=== PATIENT | male | born 1935 | race African-American/Black ===

== ENCOUNTER → 2017-08-26 | Outpatient (CLI) | payer MEDICARE, OTHER | END | disposition home or self-care (01) | LOC: KCIC US 14:10 | DX: M79.605 Pain in left leg (principal) | CPT/HCPCS: 93971 ==

== ENCOUNTER → 2017-10-01 | Day surgery (SDC) | payer MEDICARE, OTHER ==
[~2017-10-01] MED LIST: IV RINGERS,LACTATED 1000ML 1,000 ML IV; LIDOCAINE 1% PF 2 ML VIAL. ID; LIDOCAINE 2% PF Vial for OR 5 ML VIAL.; MIDAZOLAM HCL/PF 2 MG/2 ML VIAL. IV; PROPOFOL 20 ML IV; fentaNYL PF VIAL 100 MCG/2 ML VIAL IV
[2017-10-01] MEDS: IV RINGERS,LACTATED 1000ML 1,000 ML IV (07:05)
== END | disposition home or self-care (01) ==
LOC: ENDOS 11:20
DX: K29.50 Unspecified chronic gastritis without bleeding (principal); I10 Essential (primary) hypertension; I25.10 Atherosclerotic heart disease of native coronary artery without angina pectoris; I48.91 Unspecified atrial fibrillation; Z86.711 Personal history of pulmonary embolism; Z95.5 Presence of coronary angioplasty implant and graft; Z79.01 Long term (current) use of anticoagulants; Z79.82 Long term (current) use of aspirin; E78.00 Pure hypercholesterolemia, unspecified; Z85.46 Personal history of malignant neoplasm of prostate; D64.9 Anemia, unspecified; Z79.899 Other long term (current) drug therapy; Z90.49 Acquired absence of other specified parts of digestive tract; Z98.890 Other specified postprocedural states; Z98.49 Cataract extraction status, unspecified eye; Z86.718 Personal history of other venous thrombosis and embolism; M19.90 Unspecified osteoarthritis, unspecified site; Z82.49 Family history of ischemic heart disease and other diseases of the circulatory system; Z90.79 Acquired absence of other genital organ(s)
CPT/HCPCS: 43235; J2704

== ENCOUNTER → 2017-11-09 | Outpatient (CLI) | payer MEDICARE | END | disposition home or self-care (01) | LOC: US 09:14 | DX: I70.8 Atherosclerosis of other arteries (principal); I10 Essential (primary) hypertension; E78.5 Hyperlipidemia, unspecified; E78.00 Pure hypercholesterolemia, unspecified; E21.3 Hyperparathyroidism, unspecified | CPT/HCPCS: 93880 ==

== ENCOUNTER → 2018-01-19 | Outpatient (CLI) | payer MEDICARE ==
[2017-10-01 13:25] VITALS: BP 141/61
[~2018-01-19] MED LIST changes: +ASPI-482 PO; +ASPI325T8 PO; +CETI10TA16 PO; +CLOP75TA PO; +ENOX40DI SQ; -IV RINGERS,LACTATED 1000ML 1,000 ML IV; -LIDOCAINE 1% PF 2 ML VIAL. ID; -LIDOCAINE 2% PF Vial for OR 5 ML VIAL.; -MIDAZOLAM HCL/PF 2 MG/2 ML VIAL. IV; +PANT20TA2 PO; +PRAV40TA2 PO; -PROPOFOL 20 ML IV; +SIME80TA PO; +SOTA80TA48 PO; +WARF-31 PO; +WHEA1POW5 PO; -fentaNYL PF VIAL 100 MCG/2 ML VIAL IV
--- NOTE | 2018-01-19 16:39 | RAD ---
Radionuclide bone scan, 01/19/2018: HISTORY: Prostate cancer Multidetector CT imaging was performed following IV injection of 26 mCi of technetium 99m MDP. No previous bone scan is available at this time for comparison purposes. The following findings are delineated: 1. Mildly increased activity at both knees, wrists, hands, shoulders and sternoclavicular articulations are compatible with arthritis. 2. Faintly increased activity at scattered levels in the spine is likely due to arthritis. 3. Activity of the radionuclide about the skeleton and major joints is otherwise unremarkable. 4. Normal activity is present in both kidneys and the bladder. IMPRESSION: 1. Scattered arthritic changes as described above. 2. No convincing evidence of osseous metastatic disease. Electronically signed by: Reginaldo Ruiz MD (01/19/2018 4:35 PM) [facility]
== END | disposition home or self-care (01) ==
LOC: NM 14:14
DX: M13.841 Other specified arthritis, right hand (principal); M13.842 Other specified arthritis, left hand; I10 Essential (primary) hypertension; E78.5 Hyperlipidemia, unspecified; E78.00 Pure hypercholesterolemia, unspecified; Z80.59 Family history of malignant neoplasm of other urinary tract organ; Z82.0 Family history of epilepsy and other diseases of the nervous system; Z80.8 Family history of malignant neoplasm of other organs or systems; Z85.89 Personal history of malignant neoplasm of other organs and systems
CPT/HCPCS: 78306; 96374; A9503

== ENCOUNTER 2018-03-24 17:38 | Emergency (ER) | payer MEDICARE ==
[~2018-03-24] VITALS: Ht 175.3 cm; Wt 72.6 kg
[2018-03-24 18:18] LABS: BASO % 1 % (0-3); EOS # 0.2 x10^3/uL (0.0-0.7); EOS % 5 % (0-3); HEMATOCRIT 37.8 % (39.0-53.0); LYMPH # 1.1 x10^3/uL (1.0-4.8); LYMPH % 28 % (24-48); MEAN CORPUSCULAR HEMOGLOBIN 31 pg (25-35); MEAN CORPUSCULAR HGB CONC 34 g/dL (31-37); MEAN CORPUSCULAR VOLUME 89 fL (79-100); MONO # 0.5 x10^3/uL (0.0-1.1); MONO % 13 % (0-9); NEUT % 53 % (31-73); PLATELET COUNT 181 x10^3/uL (140-400); RED BLOOD COUNT 4.25 x10^6/uL (4.30-5.70); WHITE BLOOD COUNT 3.9 x10^3/uL (4.0-11.0)
[2018-03-24] MEDS ORDERED: ONDANSETRON ODT 4 MG TAB.RAPDIS. PO ONE (18:30)
--- NOTE | 2018-03-24 19:16 | EKG ---
[facility] [address] [place] [address] Test Date: 2018-03-24 Test Time: 17:50:58 Pat Name: FLORENCE AMIN Department: Room: Gender: M Casework Supervisor: : 1935 Requested By: MARIA R MEZA Order Number: [id number] Reading MD: Tanner Nunez MD Measurements Intervals [place] Rate: 63 P: 0 ID: 188 QRS: 39 QRSD: 94 T: 31 QT: 392 QTc: 404 Interpretive Statements SINUS RHYTHM RBBB Electronically Signed On 03-25-2018 11:13:53 [employer] by Tanner Nunez MD
[2018-03-24 19:41] LABS: CALCIUM 9.8 mg/dL (8.5-10.1); CREATININE 1.2 mg/dL (0.7-1.3); GFR 70.1; POTASSIUM 4.4 mmol/L (3.5-5.1)
[2018-03-24 19:43] LABS: ALBUMIN 3.5 g/dL (3.4-5.0); ALBUMIN/GLOBULIN RATIO 0.9 (1.0-1.7); TOTAL BILIRUBIN 0.4 mg/dL (0.2-1.0); TOTAL PROTEIN 7.2 g/dL (6.4-8.2)
--- NOTE | 2018-03-24 20:50 | PHYS DOC ---
Past Medical History Past Medical History: A-Fib, Cancer, Diabetes-Type II, Gallstones, High Cholesterol, Hypertension, Other Past Surgical History: Cancer Surgery, Cholecystectomy, Other Additional Past Surgical Histo: Back surgery, prostatectomy, STENT Alcohol Use: None Drug Use: None Adult General Chief Complaint Chief Complaint: CHEST PAIN HPI HPI Patient is a 82 year old history of GI bleed, CAD, hypertension and afib who presents with blood-tinged sputum earlier this afternoon. Patient takes daily aspirin but is not on additional anticoagulation therapy. Patient denies epigastric pain. No nausea or vomiting. No shortness of breath, chest pain. Does report occasional black stool. No leg pain or swelling. No dizziness or lightheadedness. No other acute symptoms or complaints. [] Review of Systems Review of Systems Review symptoms as per history of present illness. All other review symptoms are negative. All other systems were reviewed and found to be within normal limits, except as documented in this note. Current Medications Current Medications Current Medications Medications (Trade) Dose Ordered Sig/Marisol Start Time Stop Time Status Last Admin Dose Admin Famotidine (Pepcid Vial) 20 mg 1X ONCE 03/24/18 21:00 03/24/18 21:01 DC 03/24/18 21:07 20 MG Ondansetron HCl (Zofran Odt) 8 mg 1X ONCE 03/24/18 18:30 03/24/18 18:31 DC Pantoprazole Sodium (PROTONIX VIAL for IV PUSH) 80 mg 1X ONCE 03/24/18 21:00 03/24/18 21:01 DC 03/24/18 21:08 40 MG Allergies Allergies Allergies Coded Allergies Type Severity Reaction Last Updated Verified No Known Drug Allergies 10/01/17 No Physical Exam Physical Exam Constitutional: Well developed, well nourished, no acute distress, non-toxic appearance. [] HENT: Normocephalic, atraumatic, bilateral external ears normal, oropharynx moist, no oral exudates, nose normal. [] Eyes: PERRLA, EOMI, conjunctiva normal, no discharge. [] Neck: Normal range of motion, no tenderness, supple, no stridor. [] Cardiovascular:Heart rate regular rhythm, no murmur [] Lungs & Thorax: Bilateral breath sounds clear to auscultation [] Abdomen: Bowel sounds normal, soft, epigastric pain, no tenderness. [] Skin: Warm, dry. [] Back: No tenderness. [] Extremities: No tenderness, no cyanosis, no clubbing, ROM intact, no edema. [] Neurologic: Alert and oriented X 3, normal motor function, normal sensory function, no focal deficits noted. [] Psychologic: Affect normal, judgement normal, mood normal. [] Current Patient Data Vital Signs Vital Signs Date Time Temp Pulse Resp B/P (MAP) Pulse Ox O2 Delivery O2 Flow Rate FiO2 03/24/18 22:45 63 12 144/67 (92) 98 Room Air 03/24/18 17:40 97.8 97.8 Lab Values Laboratory Tests Test 03/24/18 18:00 03/24/18 18:55 03/24/18 19:03 White Blood Count 3.9 x10^3/uL (4.0-11.0) L Red Blood Count 4.25 x10^6/uL (4.30-5.70) L Hemoglobin 13.0 g/dL (13.0-17.5) Hematocrit 37.8 % (39.0-53.0) L Mean Corpuscular Volume 89 fL (79-100) Mean Corpuscular Hemoglobin 31 pg (25-35) Mean Corpuscular Hemoglobin Concent 34 g/dL (31-37) Red Cell Distribution Width 15.0 % (11.5-14.5) H Platelet Count 181 x10^3/uL (140-400) Neutrophils (%) (Auto) 53 % (31-73) Lymphocytes (%) (Auto) 28 % (24-48) Monocytes (%) (Auto) 13 % (0-9) H Eosinophils (%) (Auto) 5 % (0-3) H Basophils (%) (Auto) 1 % (0-3) Neutrophils # (Auto) 2.0 x10^3uL (1.8-7.7) Lymphocytes # (Auto) 1.1 x10^3/uL (1.0-4.8) Monocytes # (Auto) 0.5 x10^3/uL (0.0-1.1) Eosinophils # (Auto) 0.2 x10^3/uL (0.0-0.7) Basophils # (Auto) 0.0 x10^3/uL (0.0-0.2) Sodium Level 141 mmol/L (136-145) Potassium Level 4.4 mmol/L (3.5-5.1) Chloride Level 104 mmol/L (98-107) Carbon Dioxide Level 27 mmol/L (21-32) Anion Gap 10 (6-14) Blood Urea Nitrogen 22 mg/dL (8-26) Creatinine 1.2 mg/dL (0.7-1.3) Estimated GFR (Cockcroft-Gault) 70.1 BUN/Creatinine Ratio 18 (6-20) Glucose Level 107 mg/dL (70-99) H Calcium Level 9.8 mg/dL (8.5-10.1) Total Bilirubin 0.4 mg/dL (0.2-1.0) Aspartate Amino Transferase (AST) 21 U/L (15-37) Alanine Aminotransferase (ALT) 19 U/L (16-63) Alkaline Phosphatase 78 U/L (46-116) Troponin I Quantitative < 0.017 ng/mL (0.000-0.055) Total Protein 7.2 g/dL (6.4-8.2) Albumin 3.5 g/dL (3.4-5.0) Albumin/Globulin Ratio 0.9 (1.0-1.7) L Stool Occult Blood Negative (NEG) Laboratory Tests 03/24/18 18:00 Laboratory Tests 03/24/18 18:55 EKG EKG [EKG: reviewed] Radiology/Procedures Radiology/Procedures XR Chest: No acute cardiopulmonary disease on preliminary ED review[] Course & Med Decision Making Course & Med Decision Making Pertinent Labs and Imaging studies reviewed. (See chart for details) [Abdomen soft nontender, reports only mild abdominal pain. No hemoptysis or hematemesis while in the emergency department. Guaiac stools negative. Patient denies chest pain shortness of breath. Street of GI bleed, Protonix given. Patient instructed to resume Protonix follow-up with PCP for further evaluation. Return precautions reviewed. Patient verbalizes understanding agreement discharge instructions prior to departure.] Dragon Disclaimer Dragon Disclaimer This electronic medical record was generated, in whole or in part, using a voice recognition dictation system. Departure Departure Impression: Primary Impression: GI bleeding Disposition: HOME, SELF-CARE Condition: GOOD Referrals: ZACHARY RILEY Jr, MD (PCP) MARIA R MEZA DO Mar 24, 2018 20:50
[2018-03-24] MEDS ORDERED: FAMOTIDINE 20 MG/2 ML VIAL IVP ONE (21:00)
[2018-03-24] MEDS ORDERED: PANTOPRAZOLE IV PUSH 40 MG VIAL. IVP ONE (21:00)
[2018-03-24 21:01] LABS: FECAL OB PT NEGATIVE (NEG)
[2018-03-24 22:45] VITALS: BP 144/67
--- NOTE | 2018-03-24 22:54 | RAD ---
Single view chest dated 03/24/2018. Comparison made to 11/28/2015. Clinical indication: Chest pain. FINDINGS: single upright portable exam performed. Heart and mediastinal contours are stable. Lungs are clear without focal consolidation. Vascular interstitium within normal limits. No pleural effusion or pneumothorax. IMPRESSION: No acute radiographic abnormality. Stable findings compared to 11/28/2015. Electronically signed by: Ortega Lynn MD (03/24/2018 10:51 PM) [facility]
== END 2018-03-24 22:42 | disposition home or self-care (01) ==
LOC: ER 17:38
DX: K92.2 Gastrointestinal hemorrhage, unspecified (principal); I48.91 Unspecified atrial fibrillation; E78.00 Pure hypercholesterolemia, unspecified; I10 Essential (primary) hypertension; Z90.49 Acquired absence of other specified parts of digestive tract; Z98.890 Other specified postprocedural states
CPT/HCPCS: 36415; 71045; 80053; 82274; 84484; 85025; 93005; 96374; 96375; 99285; C9113; J3490

== ENCOUNTER → 2018-05-27 | Outpatient (CLI) | payer MEDICARE ==
--- NOTE | 2018-05-31 15:12 | KCIC ---
Bone Densitometry History: Hormone treatments, history prostate cancer. Findings: Bone Densitometry was performed with dual photon absorption of the lumbar spine and left femur. Lumbar Spine: Bone density is 1.011 g/cm2 for L1-L4. T-score is -0.7. Z-score is -0.3. Left total femur: Bone density is 0.885 g/cm2. T-score is -1.0. Z-score is -0.2. IMPRESSION: Low normal bone mineral density of the lumbar spine. Borderline osteopenia of the left femur. World Health Organization definition of osteoporosis and osteopenia for women: normal equals T score at or above -1.0 standard deviations; osteopenia equals T score between -1.0 and -2.5 standard deviations; osteoporosis equals T score at or below -2.5 standard deviations. Electronically signed by: Eusebio Luu MD (05/27/2018 5:34 PM) [id number]
== END | disposition home or self-care (01) ==
LOC: KCIC DEXA 12:57
PROVIDERS: ATTEND Internal Medicine
DX: M85.852 Other specified disorders of bone density and structure, left thigh (principal); Z85.46 Personal history of malignant neoplasm of prostate
CPT/HCPCS: 77080

== ENCOUNTER → 2018-12-14 | Outpatient (CLI) | payer MEDICARE ==
[2018-12-14 19:14] LABS: TESTOSTERONE TOTAL 420 ng/dL (264-916)
== END | disposition home or self-care (01) ==
LOC: LAB 09:27
PROVIDERS: ATTEND Internal Medicine
DX: C61 Malignant neoplasm of prostate (principal)
CPT/HCPCS: 36415; 84153; 84403; G0103

== ENCOUNTER → 2020-05-22 | Outpatient (CLI) | payer MEDICARE ==
--- NOTE | 2020-05-22 15:54 | CARD ---
MR#: [id number] Date of Study: 05/22/2020 Ordering Physician: CORAZON NELSON, Referring Physician: CORAZON NELSON, Tech: Dianne Casiano [facility] APPROVED REPORT EXAM: Two-dimensional and M-mode echocardiogram with Doppler and color Doppler. Other Information Quality : Technically LimitedHR: 66bpm Rhythm : NSR INDICATION Dyspnea RISK FACTORS Hypertension 2D DIMENSIONS Left Atrium(2D)3.7 (1.6-4.0cm)IVSd1.2 (0.7-1.1cm) Aortic Root(2D)3.5 (2.0-3.7cm)LVDd4.0 (3.9-5.9cm) LVOT Diameter2.0 (1.8-2.4cm)PWd0.9 (0.7-1.1cm) LVDs2.4 (2.5-4.0cm)FS (%) 40.1 % SV51.0 mlLVEF(%)71.3 (>50%) Aortic Valve AoV Peak Diego.118.3cm/sAoV VTI28.4cm AO Peak GR.5.6mmHgLVOT Peak Diego.101.3cm/s AO Mean GR.3mmHgAVA (VMAX)2.78cm2 Mitral Valve MV E Bksivrte72.6cm/sMV DECEL [id number] MV A Muozjvxe68.0cm/sE/A Ratio1.5 Pulmonary Valve PV Peak Erjcyxxm12.3cm/s Tricuspid Valve TR P. Husgmupe996cz/sTR Peak Gr.38mmHg Pulmonary Vein S1 Aefsjvzc45.9cm/sD2 Givkskqx79.1cm/s PVa [id number] LEFT VENTRICLE The left ventricle is normal size. There is normal left ventricular wall thickness. The left ventricu lar systolic function is normal and the ejection fraction is within normal range. Estimated ejection fraction 60-65%. There is normal LV segmental wall motion. Transmitral Doppler flow pattern is Grade I-abnormal relaxation pattern. RIGHT VENTRICLE The right ventricle is normal size. There is normal right ventricular wall thickness. The right ventr icular systolic function is normal. ATRIA The left atrium is moderately dilated. The right atrium is moderately dilated. The interatrial septum is intact with no evidence for an atrial septal defect or patent foramen ovale as noted on 2-D or Do ppler imaging. AORTIC VALVE The aortic valve appears minimally sclerotic and is normal in structure and function. Doppler and Col or Flow revealed no significant aortic regurgitation. There is no significant aortic valvular stenosi s. MITRAL VALVE The mitral valve is normal in structure and function. There is no evidence of mitral valve prolapse. There is no mitral valve stenosis. Doppler and Color-flow revealed mild mitral regurgitation. TRICUSPID VALVE The tricuspid valve is normal in structure and function. Doppler and Color Flow revealed mild tricusp id regurgitation. Estimated PAP 42-45 mmHg. There is no tricuspid valve stenosis. PULMONIC VALVE The pulmonary valve is normal in structure and function. Doppler and Color Flow revealed moderate pul arminda valvular regurgitation. There is no pulmonic valvular stenosis. GREAT VESSELS The aortic root is normal in size. The ascending aorta is normal in size. The IVC is normal in size a nd collapses >50% with inspiration. PERICARDIAL EFFUSION There is no evidence of significant pericardial effusion. Critical Notification Critical Value: No <Conclusion> The left ventricular systolic function is normal and the ejection fraction is within normal range. Es timated ejection fraction 60-65%. There is normal LV segmental wall motion. Doppler and Color Flow revealed moderate pulmonic valvular regurgitation. Signed by : Tanner Nunez, Electronically Approved : 05/22/2020 15:54:37
== END ==
LOC: ECHO 13:40
PROVIDERS: ATTEND Internal Medicine Cardiovascular Disease
DX: I08.8 Other rheumatic multiple valve diseases (principal)
CPT/HCPCS: 93306

== ENCOUNTER → 2020-08-28 | Outpatient (CLI) | payer MEDICARE ==
[~2020-08-28] MED LIST changes: +CONTRAST GIVEN. MC PRN; +IOHEXOL 240 MG/ML 50ML VIAL. PO ONE; +IOHEXOL 300 MG/ML 100ML VIAL. IV ONE
[2020-08-28 09:52] LABS: CREATININE 1.1 mg/dL (0.7-1.3)
--- NOTE | 2020-08-28 11:32 | RAD ---
EXAM: Abdomen and pelvis CT with intravenous contrast. HISTORY: Pain. TECHNIQUE: Computed tomographic images of the abdomen and pelvis were obtained following the administ ration of intravenous contrast. Multiplanar reformatting was performed. *One or more of the following individualized dose reduction techniques were utilized for this examina tion: 1. Automated exposure control. 2. Adjustment of the mA and/or kV according to patient size. 3. Use of iterative reconstruction technique. COMPARISON: PET/CT dated 12/13/2015. FINDINGS: Evaluation of the lower thorax demonstrates posterior dependent and basilar atelectasis. Th ere is cardiomegaly. There is calcified atherosclerotic plaque involving the coronary arteries. There is calcification of the aortic valve. There are several hypodense lesions within the liver, the attenuation of which favors cysts. The larg est of these is seen within the inferior right hepatic lobe measuring 3.0 cm. The gallbladder is abse nt. The pancreas, spleen, stomach and adrenal glands are unremarkable. There are small and tiny simple appearing left renal cysts. There is no hydronephrosis or suspicious solid renal lesion. The urinary bladder is unremarkable. There are surgical clips throughout the pelv is. There is no appendicitis. There is no bowel obstruction. There is moderate colonic stool. There is si gmoid diverticulosis. There is no diverticulitis. There is calcified atherosclerotic plaque involving the aorta and aortic branch vessels. There is no lymphadenopathy. There is a small fat-containing ri ght inguinal hernia. There is no suspicious osseous lesion. IMPRESSION: 1. No convincing acute abdominal or pelvic finding. 2. Multiple simple appearing hepatic cysts and left renal cyst. Follow-up is not routinely performed for simple cysts. 3. Sigmoid diverticulosis. Electronically signed by: Connie Larson MD (08/28/2020 11:30 AM) [id number]
== END ==
LOC: CT 09:22
PROVIDERS: ATTEND Internal Medicine Gastroenterology
DX: K40.90 Unilateral inguinal hernia, without obstruction or gangrene, not specified as recurrent (principal); N28.1 Cyst of kidney, acquired; I70.0 Atherosclerosis of aorta; I51.7 Cardiomegaly
CPT/HCPCS: 36415; 74177; 82565; Q9966; Q9967

== ENCOUNTER → 2020-11-13 | Outpatient (CLI) | payer MEDICARE ==
[~2020-11-13] MED LIST changes: -CONTRAST GIVEN. MC PRN; -IOHEXOL 240 MG/ML 50ML VIAL. PO ONE; -IOHEXOL 300 MG/ML 100ML VIAL. IV ONE
--- NOTE | 2020-11-13 10:14 | RAD ---
MR#: [id number] Date of Study: 11/13/2020 Ordering Physician: CORAZON NELSON, Referring Physician: CORAZON NELSON, Tech: Yoni De Santiago MBA, RDMS, RVT, RDCS, RTR APPROVED REPORT Bilateral Lower Extremity Venous Study for DVT Patient Location: OUT-PATIENT Indications Lower Extremity Edema: Bilateral Vein Imaging (Right) CFV (R): Compressible SFJ (R): Compressible FEM (R): Compressible POP (R): Compressible DFV (R): Compressible PTV (R): Spontaneous GSV (R): Spontaneous Peroneals (R): Spontaneous Vein Imaging (Left) CFV (L): Compressible SFJ (L): Compressible FEM (L): Compressible POP (L): Compressible DFV (L): Compressible PTV (L): Spontaneous GSV (L): Spontaneous Peroneals (L): Spontaneous Doppler Evaluation (Right) CFV (R): Spontaneous POP (R):Spontaneous Doppler Evaluation (Left) CFV (L):Spontaneous POP (L):Spontaneous Findings The bilateral lower extremity deep veins were evaluated for thrombus with color Doppler, spectral and grayscale images. On the right the grayscale images of the common femoral, superficial femoral and popliteal veins do n ot demonstrate any evidence of thrombus and these veins appear to be compressible. The below-knee vei ns were not well visualized but grossly appear to be compressible. Spectral imaging and color Doppler do not reveal any evidence of obstruction to flow with normal respirophasic variation above the knee . Below the knee there is spontaneous flow noted. On the left, the grayscale images of the common femoral, superficial femoral and popliteal veins do n ot demonstrate any evidence of thrombus and these veins appear to be compressible. The below-knee vei ns again were not well visualized but grossly appear to be compressible. Spectral imaging and color D oppler do not reveal any evidence of obstruction to flow with normal respirophasic variation above th e knee. The below-knee veins demonstrate spontaneous flow. Critical Notification Critical Value: No <Conclusion> 1. Negative for DVT in the BLE. Signed by : Tanner Nunez, Electronically Approved : 11/13/2020 10:13:40
== END ==
LOC: US 06:32
PROVIDERS: ATTEND Internal Medicine Cardiovascular Disease
DX: R60.0 Localized edema (principal)
CPT/HCPCS: 93970

== ENCOUNTER 2021-06-26 07:26 | Emergency (ER) | payer MEDICARE ==
[~2021-06-26] VITALS: Ht 172.7 cm; Wt 70.9 kg
--- NOTE | 2021-06-26 07:30 | PHYS DOC ---
Past Medical History Past Medical History: A-Fib, Cancer, Diabetes-Type II, Gallstones, High C holesterol, Hypertension, Other Past Surgical History: Cancer Surgery, Cholecystectomy, Other Additional Past Surgical Histo: Back surgery, prostatectomy, STENT Smoking Status: Never Smoker Alcohol Use: None Drug Use: None General Adult HPI: HPI: Patient is a 86 year old male who presents with approximately 1 week history of intermittent dizziness. He describes lightheadedness. Denies symptoms of vertigo. He has no current symptoms at present. He also reports mild intermittent left sided headache pain, which is also currently resolved. No thunderclap headache reported. He denies fall or head injury. He denies numbness, tingling, motor weakness. He denies syncope or near syncope. He denies chest pain, palpitations or dyspnea. He denies abdominal pain, nausea, vomiting. He reports no specific symptom changes today. He took his blood pressure this morning at home, and the blood pressure readings were in the 150s and 160s systolic, which concerned him. He normally does not reportedly have hypertension, reportedly takes no antihypertensive medications, though hypertension is documented in his past medical history. He reports that he has significant difficulty with sleeping and problems with insomnia. He intermittently takes Benadryl, though not regularly. He does report good relief insomnia with Benadryl use. He reports that he has been up most of the night worrying about the symptoms. He has not contacted his PCP for evaluation of these symptoms. Review of Systems: Review of Systems: Constitutional: Denies fever or chills. [] Eyes: Denies change in visual acuity, denies vision loss HENT: Reports mild nasal congestion. Denies sore throat. Respiratory: Denies cough or shortness of breath. [] Cardiovascular: Denies chest pain or edema or palpitations. GI: Denies abdominal pain, nausea, vomiting, diarrhea. : Denies urinary symptoms Musculoskeletal: Denies back pain or joint pain. [] Integument: Denies rash. [] Neurologic: Reports mild headache, currently resolved. Denies focal weakness, numbness or tingling, reports dizziness/lightheadedness. Denies symptoms of vertigo. Denies fall, head injury or syncope. Psychiatric: Denies depression or anxiety. [] Heart Score: C/O Chest Pain: No Risk Factors: Risk Factors: DM, Current or recent (<one month) smoker, HTN, HLP, family history of CAD, obesity. Risk Scores: Score 0 - 3: 2.5% MACE over next 6 weeks - Discharge Home Score 4 - 6: 20.3% MACE over next 6 weeks - Admit for Clinical Observation Score 7 - 10: 72.7% MACE over next 6 weeks - Early Invasive Strategies Allergies: Allergies: Allergies Coded Allergies Type Severity Reaction Last Updated Verified No Known Drug Allergies 10/01/17 No Physical Exam: PE: Constitutional: Well developed, well nourished, no acute distress, non-toxic appearance. [] HENT: Normocephalic, atraumatic, oropharynx is patent and clear, mucous membranes are moist. TMs are clear bilaterally. Nares are patent without rhinorrhea epistaxis. No facial contusion, swelling, evidence of trauma Eyes: PERRL, EOMI, conjunctiva normal, no discharge. No nystagmus. No scleral icterus. Neck: Normal range of motion, no tenderness, supple, no stridor. Trachea midline, no JVD, no meningismus. Cardiovascular:Heart rate regular rhythm, +2 radial and +2 posterior tibial pulses bilaterally. Lungs & Thorax: Bilateral breath sounds clear to auscultation, no rales, rhonchi or wheezes. Abdomen: Abdomen is soft, nondistended, nontender to palpation, no palpable pulsatile mass, no abdominal ecchymoses are noted. Skin: Warm, dry, no erythema, no rash. [] ] Extremities: No tenderness, no cyanosis, no clubbing, ROM intact, mild, symmetric 1+ nonpitting lower extremity/ankle edema. No calf tenderness. Neurologic: He is awake, alert, oriented x3, cranial nerves II through XII grossly intact, 5 out of 5 motor strength all 4 extremities, no limb ataxia, no pronator drift, no dysmetria, speech is clear and fluent, sensation grossly intact. Psychologic: Affect normal, judgement normal, mood normal. He is pleasant cooperative. EKG: EKG: EKG is interpreted at 0735 Rhythm is sinus Rate is 65 bpm [place] is normal No STEMI Radiology/Procedures: Radiology/Procedures: IMAGING REPORT Signed PATIENT: FLORENCE AMINCOUNT: [id number] : 1935 LOCATION: ER AGE: 86 SEX: M EXAM STATUS: REG ER ORD. PHYSICIAN: ED DE LEON DO REASON: dizziness PROCEDURE: CT HEAD WO CONTRAST CT HEAD/BRAIN WO Date: 06/26/2021 7:57 AM Clinical Indication: Reason: dizziness / Spl. Instructions: / History: Comparison: None. Technique: 5 mm axial tomographic images were obtained of the head without contrast. These were viewed on brain and bone windows. One or more of the following dose reduction techniques were utilized: Automated exposure control (AEC), Adjustment of mA and/or kV according to patient size, Use of iterative reconstruction technique such as ASiR, CT scan done according to ALARA and image gently/image wisely Findings: Mild/moderate generalized cerebral and cerebellar volume loss. Mild nonspecific periventricular hypoattenuation, most commonly seen with chronic small vessel ischemic disease. Calcified atherosclerosis of the bilateral cavernous and paraclinoid internal carotid arteries and intracranial vertebral arteries. No intra- or extra-axial mass or fluid collection. No acute hemorrhage. The ventricles are normal in size, shape, and morphology. The fagan-white matter junction is normal. The subarachnoid cisterns are patent. The visualized paranasal sinuses are normal. The visualized portions of the orbits and globes are normal. The mastoid air cells are clear. The straightener hand topogram shows no lytic lesion or fracture. Impression: No acute intracranial process. Mild/moderate cerebral volume loss. Mild chronic small vessel ischemic disease. Electronically signed by: Lilia Raza DO (06/26/2021 8:19 AM) [id number] DICTATED and SIGNED BY: LILIA RAZA DO DATE: 06/26/21 [id number] Course & Med Decision Making: Course & Med Decision Making Pertinent Labs and Imaging studies reviewed. (See chart for details) The patient has remained asymptomatic of headache or dizziness here. He continues to deny chest pain or dyspnea. He has a nonfocal neurologic exam. CT imaging is negative/unremarkable for acute life-threatening pathology. Emergency department work-up is unremarkable for acute life-threatening pathology. His blood pressure is mildly elevated, he has a documented history of known hypertension. I discussed all the findings, differential diagnosis plan of care with the patient. I told him to take a log of his blood pressure readings to his primary care physician for follow-up, possible medication adjustment. There is no current indication for further invasive exams, imaging or admission at this time. Strict return precautions are given. He verbalizes understanding. He is discharged in stable condition. Yung Disclaimer: Yung Disclaimer: This electronic medical record was generated, in whole or in part, using a voice recognition dictation system. Departure Departure Impression: Primary Impression: History of dizziness Additional Impressions: History of headache Insomnia Qualified Codes: G47.00 - Insomnia, unspecified Hypertension Qualified Codes: I10 - Essential (primary) hypertension Disposition: HOME / SELF CARE / HOMELESS Condition: STABLE Referrals: CINDY MORA MD (PCP) Patient Instructions: Dizziness, Hypertension, Insomnia Additional Instructions: Please contact your primary care doctor arrange for close follow-up. You may wish to keep a log of your blood pressure at home, go to your doctor to see if you need to be have your medications adjusted. Please return to the ER for chest pain, shortness of breath, more severe dizziness, if you have a fall or head injury, if you develop any focal motor weakness, vomiting, dehydration temperature 100.4 or higher or for any other concerns. Use the prescribed medication to help with your insomnia symptoms. Scripts Doxylamine Succinate (UNISOM SLEEP AID) 25 Mg Tablet 1 TAB PO QHS for insomnia for 30 Days, #30 TAB 0 Refills Prov: ED DE LEON DO 06/26/21 ED DE LEON DO Jun 26, 2021 07:30
[2021-06-26 08:08] LABS: BASO % 1 % (0-3); EOS # 0.2 x10^3/uL (0.0-0.7); EOS % 7 % (0-3); HEMATOCRIT 36.8 % (39.0-53.0); HEMOGLOBIN 12.2 g/dL (13.0-17.5); LYMPH # 0.9 x10^3/uL (1.0-4.8); LYMPH % 33 % (24-48); MEAN CORPUSCULAR HEMOGLOBIN 30 pg (25-35); MEAN CORPUSCULAR HGB CONC 33 g/dL (31-37); MEAN CORPUSCULAR VOLUME 91 fL (79-100); MONO # 0.4 x10^3/uL (0.0-1.1); MONO % 13 % (0-9); NEUT # 1.3 x10^3/uL (1.8-7.7); NEUT % 46 % (31-73); PLATELET COUNT 147 x10^3/uL (140-400); RED BLOOD COUNT 4.03 x10^6/uL (4.30-5.70); RED CELL DISTRIBUTION WIDTH 14.6 % (11.5-14.5); WHITE BLOOD COUNT 2.8 x10^3/uL (4.0-11.0)
--- NOTE | 2021-06-26 08:22 | RAD ---
CT HEAD/BRAIN WO Date: 06/26/2021 7:57 AM Clinical Indication: Reason: dizziness / Spl. Instructions: / History: Comparison: None. Technique: 5 mm axial tomographic images were obtained of the head without contrast. These were view ed on brain and bone windows. One or more of the following dose reduction techniques were utilized: A utomated exposure control (AEC), Adjustment of mA and/or kV according to patient size, Use of iterati ve reconstruction technique such as ASiR, CT scan done according to ALARA and image gently/image reno ly Findings: Mild/moderate generalized cerebral and cerebellar volume loss. Mild nonspecific periventricular hypoa ttenuation, most commonly seen with chronic small vessel ischemic disease. 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 No intra- or extra-axial mass or fluid collection. No acute hemorrhage. The ventricles are normal in size, shape, and morphology. The fagan-white matter junction is normal. The subarachnoid cisterns are patent. The visualized paranasal sinuses are normal. The visualized portions of the orbits and globes are no rmal. The mastoid air cells are clear. 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 Impression: No acute intracranial process. Mild/moderate cerebral volume loss. Mild chronic small vessel ischemic disease. Electronically signed by: Michael Raza DO (06/26/2021 8:19 AM) [email or web address]
[2021-06-26 08:48] LABS: CALCIUM 8.6 mg/dL (8.5-10.1); CREATININE 1.1 mg/dL (0.7-1.3); GFR 76.8; POTASSIUM 4.1 mmol/L (3.5-5.1)
[2021-06-26 08:55] LABS: ALBUMIN/GLOBULIN RATIO 0.8 (1.0-1.7); MAGNESIUM 2.3 mg/dL (1.8-2.4); PHOSPHORUS 3.3 mg/dL (2.6-4.7); TOTAL BILIRUBIN 0.5 mg/dL (0.2-1.0); TOTAL PROTEIN 6.6 g/dL (6.4-8.2)
[2021-06-26 10:48] LABS: BILIRUBIN,URINE NEGATIVE (NEG); CLARITY,URINE CLEAR; COLOR,URINE YELLOW; NITRITE,URINE NEGATIVE (NEG); PROTEIN,URINE NEGATIVE (NEG-TRACE); UROBILINOGEN,URINE 0.2 mg/dL (0.2 mg/dL)
[2021-06-26 10:52] LABS: BACTERIA,URINE 0 /HPF (0-FEW); RBC,URINE 0 /HPF (0-2); WBC,URINE 0 /HPF (0-4)
[2021-06-26] MEDS ORDERED: DOXY25TA16 PO (11:06)
[2021-06-26 11:24] VITALS: BP 168/64
--- NOTE | 2021-06-26 14:22 | EKG ---
[facility] [address] [place] [address] Test Date: 2021-06-26 Test Time: 07:33:18 Pat Name: FLORENCE AMIN Department: Room: Gender: M Building Services Coordinator: : [id number] Requested By: ED DE LEON Order Number: [id number] Reading MD: Guy Grimes Measurements Intervals [place] Rate: 65 P: -27 CA: 186 QRS: 41 QRSD: 100 T: 19 QT: 422 QTc: 440 Interpretive Statements SINUS RHYTHM INCOMPLETE RIGHT BUNDLE BRANCH BLOCK Electronically Signed On 06-26-2021 19:55:52 ATTORNEY RECRUITER by Guy Grimes
== END 2021-06-26 11:31 | disposition home or self-care (01) ==
LOC: ER 07:26
DX: R42 Dizziness and giddiness (principal); R51.9 Headache, unspecified; G47.00 Insomnia, unspecified; I10 Essential (primary) hypertension; I48.91 Unspecified atrial fibrillation; E11.9 Type 2 diabetes mellitus without complications; E78.00 Pure hypercholesterolemia, unspecified; Z95.5 Presence of coronary angioplasty implant and graft
CPT/HCPCS: 36415; 70450; 80053; 81001; 83735; 84100; 84484; 85025; 93005; 99285-25